=== PATIENT | male | born 1995 | race Caucasian/White ===

== ENCOUNTER 2021-02-16 21:43 | Emergency (ER) | payer MEDICAID ==
[~2021-02-16] VITALS: Ht 182.9 cm; Wt 80.0 kg
--- NOTE | 2021-02-16 21:53 | NUR ---
Pt arrives via [facility]. He reportedly called an ambulance because he was cold. Found on the street. ETOH or drugs likely. Uncooperative at scene so PD came with pt to [facility]. Changed into gown and staying in bed but covering head with blankets and refusing to answer questions or talk. Breathing equal, non-labored.
--- NOTE | 2021-02-16 21:53 | NUR ---
[employer] at bedside.
--- NOTE | 2021-02-16 22:55 | NUR ---
PD at bedside. Pt resting in bed, breathing equal non-labored.
--- NOTE | 2021-02-16 23:25 | NUR ---
PD at bedside. Pt laying in bed, still not talking or answering questions.
[2021-02-16 23:32] VITALS: BP 102/62
--- NOTE | 2021-02-16 23:38 | NUR ---
PD at bedside. Pt mumbling. Sat pt up, pt refusing to try to walk. Provided pt water and niranjan crackers, not drinking or eating. Refusing to open eyes.
--- NOTE | 2021-02-17 00:28 | NUR ---
Pt still uncooperative. Handcuffed and escorted out by law enforcement.
--- NOTE | 2021-02-17 00:32 | NUR ---
Pt refused discharge vital signs.
== END 2021-02-17 00:34 | disposition home or self-care (01) ==
LOC: ED 02-17 00:28
DX: Z00.00 Encounter for general adult medical examination without abnormal findings (principal); F15.10 Other stimulant abuse, uncomplicated; Z72.9 Problem related to lifestyle, unspecified
CPT/HCPCS: 99283